=== PATIENT | male | born 1950 | race African-American/Black ===

== ENCOUNTER 2017-07-17 10:31 | Emergency (ER) | payer MEDICARE, MEDICAID ==
[~2017-07-17] VITALS: Ht 190.5 cm; Wt 107.7 kg
[~2017-07-17 10:31] MED LIST: METF500T4 PO; MORP15TA9 PO
[2017-07-17 10:45] VITALS: BP 143/71
[2017-07-17] MEDS ORDERED: ACET1TAB12 PO (10:48)
[2017-07-17] MEDS ORDERED: BP MED (10:48)
[2017-07-17 10:52] LABS: GLUCOSE,POINT OF CARE 131 MG/DL (70-110)
[2017-07-17] MEDS ORDERED: KETOROLAC TROMETHAMINE 30 MG/ML VIAL IM ONE (12:30)
[2017-07-17] MEDS ORDERED: CYCLOBENZAPRINE HCL 10 MG TABLET PO ONE (12:30)
== END 2017-07-17 13:15 | disposition home or self-care (01) ==
LOC: EMS 10:33
DX: M54.42 Lumbago with sciatica, left side (principal); M79.605 Pain in left leg; E11.9 Type 2 diabetes mellitus without complications; I10 Essential (primary) hypertension; Z88.5 Allergy status to narcotic agent
CPT/HCPCS: 82962; 96372; 99283; J1885

== ENCOUNTER 2018-03-11 09:53 | Emergency (ER) | payer MEDICARE, MEDICAID ==
[~2018-03-11] VITALS: Ht 190.5 cm; Wt 101.8 kg
[~2018-03-11 09:53] MED LIST changes: +ACET1TAB12 PO; +BP MED; -METF500T4 PO; -MORP15TA9 PO
[2018-03-11] MEDS ORDERED: ACETAMINOPHEN/CODEINE 300-30 MG TABLET PO ONE (12:45)
[2018-03-11 13:48] VITALS: BP 156/94
== END 2018-03-11 14:10 | disposition home or self-care (01) ==
LOC: EMS 09:54
DX: M54.5 Low back pain (principal); E11.9 Type 2 diabetes mellitus without complications; I10 Essential (primary) hypertension; F17.210 Nicotine dependence, cigarettes, uncomplicated; Z88.5 Allergy status to narcotic agent
CPT/HCPCS: 72100; 99406

== ENCOUNTER 2020-03-28 11:14 | Emergency (ER) | payer MEDICARE, MEDICAID ==
[~2020-03-28] VITALS: Ht 189.2 cm; Wt 98.6 kg
[2020-03-28 13:50] VITALS: BP 150/87
== END 2020-03-28 14:14 | disposition home or self-care (01) ==
LOC: EMS 11:14
DX: L84 Corns and callosities (principal); L03.116 Cellulitis of left lower limb; E11.9 Type 2 diabetes mellitus without complications; I10 Essential (primary) hypertension; F17.210 Nicotine dependence, cigarettes, uncomplicated; Z88.5 Allergy status to narcotic agent

== ENCOUNTER 2021-09-01 02:51 | Inpatient (IN) | payer MEDICARE, MEDICAID ==
[~2021-09-01] VITALS: Ht 190.5 cm; Wt 100.0 kg
[~2021-09-01 02:51] MED LIST changes: -ACET1TAB12 PO; +AMLO-258 PO; -BP MED
[2021-09-01] MEDS ORDERED: ACET-3385 PO (02:57)
[2021-09-01] MEDS ORDERED: FAMOTIDINE 40 MG in SODIUM CHLORIDE 0.9% 100 ML IV ONE (04:00)
[2021-09-01] MEDS ORDERED: DiphenhydrAMINE HCL 50 MG/ML VIAL IVP ONE ×2 (04:00→07:30)
[2021-09-01] MEDS ORDERED: MethylPREDNISolone SOD SUCC 125 MG/2 ML VIAL IVP ONE (04:00)
[2021-09-01] MEDS ORDERED: EPINEPHrine 1:1,000 [1 MG/ML] VIAL IM ONE (04:15)
[2021-09-01 04:16] LABS: BASOPHILS % (AUTO) 0.4 % (0.0-2.0); EOSINOPHILS % (AUTO) 6.6 % (1.0-6.0); HEMATOCRIT 36.6 % (41-53); HEMOGLOBIN 12.8 g/dL (13.5-17.5); LYMPHOCYTES # (AUTO) 1.7 K/uL (1.0-4.8); MEAN CORPUSCULAR HEMOGLOBIN 25.8 pg (26.0-34.0); MEAN CORPUSCULAR HGB CONC 34.9 G/dL (31.0-37.0); MEAN CORPUSCULAR VOLUME 74 fL (80-100); MONOCYTES # (AUTO) 1.1 K/uL (0.1-1.0); MONOCYTES % (AUTO) 9.7 % (2.0-9.0); NEUTROPHILS # (AUTO) 7.3 K/uL (1.8-7.7); NEUTROPHILS % (AUTO) 67.3 % (40.0-70.0); PLATELET COUNT (AUTO) 226 K/uL (150-450); RED BLOOD CELL COUNT(AUTO) 4.96 MIL/uL (4.50-5.90); RED CELL DISTRIBUTION WIDTH 16.4 % (11.5-14.5)
[2021-09-01 04:24] LABS: CALCIUM, TOTAL 8.7 mg/dL (8.8-10.5); CREATININE 1.7 mg/dL (0.60-1.30); POTASSIUM 3.7 mmol/L (3.5-5.1)
[2021-09-01] MEDS ORDERED: ACETAMINOPHEN 325 MG TABLET PO PRN (07:00)
[2021-09-01] MEDS ORDERED: DiphenhydrAMINE HCL 50 MG/ML VIAL IM SCH (07:00)
[2021-09-01] MEDS ORDERED: ONDANSETRON HCL 4 MG/2 ML VIAL IVP PRN (07:00)
[2021-09-01] MEDS ORDERED: ALBUTEROL SULFATE 2.5 MG/0.5 ML NEB SOLUTION NEB PRN (07:15)
[2021-09-01] MEDS: CETIRIZINE HCL 10 MG TABLET PO SCH (08:16)
[2021-09-01] MEDS: MethylPREDNISolone SOD SUCC 125 MG/2 ML VIAL IVP SCH (08:21)
[2021-09-01] MEDS: FAMOTIDINE 10 MG/ML 2 ML VIAL IVP SCH (08:22)
[2021-09-01] MEDS: HEPARIN SODIUM,PORCINE 5,000 UNITS/ML VIAL SQ SCH ×2 (08:23→16:44)
[2021-09-01 09:34] LABS: COVID AG,FIA SOURCE NASAL SWAB
[2021-09-01] MEDS: AmLODIPine BESYLATE 10 MG TABLET PO SCH (10:17)
[2021-09-01] MEDS: DiphenhydrAMINE HCL 50 MG/ML VIAL IVP SCH ×2 (12:09→20:27)
[2021-09-01 14:33] VITALS: BP 127/77
[2021-09-01 20:42] VITALS: BP 139/70
[2021-09-02] MEDS: DiphenhydrAMINE HCL 50 MG/ML VIAL IVP SCH ×2 (02:11→07:29)
[2021-09-02] MEDS: HEPARIN SODIUM,PORCINE 5,000 UNITS/ML VIAL SQ SCH ×2 (02:11→09:04)
[2021-09-02 03:18] LABS: CREATININE,URINE RANDOM 192.2 mg/dL (30.0-125.0)
[2021-09-02 05:04] VITALS: BP 154/85
[2021-09-02 08:04] VITALS: BP 136/73
[2021-09-02] MEDS: MethylPREDNISolone SOD SUCC 125 MG/2 ML VIAL IVP SCH (09:01)
[2021-09-02] MEDS: AmLODIPine BESYLATE 10 MG TABLET PO SCH (09:05)
[2021-09-02] MEDS: CETIRIZINE HCL 10 MG TABLET PO SCH (09:05)
[2021-09-02] MEDS: FAMOTIDINE 10 MG/ML 2 ML VIAL IVP SCH (09:25)
== END 2021-09-02 14:02 | disposition home or self-care (01) | DRG 916 ==
LOC: EMS 02:52 → 6N 13:57
PROVIDERS: ADMIT Internal Medicine; ATTEND Internal Medicine
DX: T78.3XXA Angioneurotic edema, initial encounter (principal); I12.9 Hypertensive chronic kidney disease with stage 1 through stage 4 chronic kidney disease, or unspecified chronic kidney disease; E11.22 Type 2 diabetes mellitus with diabetic chronic kidney disease; F17.210 Nicotine dependence, cigarettes, uncomplicated; R91.1 Solitary pulmonary nodule; N18.2 Chronic kidney disease, stage 2 (mild); J44.9 Chronic obstructive pulmonary disease, unspecified; Z88.8 Allergy status to other drugs, medicaments and biological substances; Z82.49 Family history of ischemic heart disease and other diseases of the circulatory system; Z85.46 Personal history of malignant neoplasm of prostate; Z85.528 Personal history of other malignant neoplasm of kidney; Z90.5 Acquired absence of kidney; Z92.3 Personal history of irradiation; Z71.6 Tobacco abuse counseling
CPT/HCPCS: 70450; 70486; 70490; 71045; 71250; 80048; 82570; 84300; 84484; 85025; 99285; J0171; J1200; J1644; J2930; J3490; J7050; 36415-L1; 36415-TC

== ENCOUNTER 2022-01-24 09:55 | Emergency (ER) | payer MEDICARE, MEDICAID ==
[~2022-01-24] VITALS: Ht 188 cm; Wt 99.1 kg
[~2022-01-24 09:55] MED LIST changes: +ACET-3385 PO
[2022-01-24] MEDS ORDERED: DEXAMETHASONE SOD PHOS 4 MG/ML 5 ML VIAL IM ONE (10:15)
[2022-01-24] MEDS ORDERED: DiphenhydrAMINE HCL 25 MG CAPSULE PO ONE (10:15)
[2022-01-24 11:10] VITALS: BP 137/76
[2022-01-24] MEDS ORDERED: DIPH25CA85 PO (12:25)
[2022-01-24] MEDS ORDERED: PRED-554 PO (12:26)
== END 2022-01-24 12:33 | disposition home or self-care (01) ==
LOC: EMS 09:55
DX: R22.0 Localized swelling, mass and lump, head (principal); T46.5X5A Adverse effect of other antihypertensive drugs, initial encounter; I10 Essential (primary) hypertension; E78.00 Pure hypercholesterolemia, unspecified; F17.210 Nicotine dependence, cigarettes, uncomplicated; Z98.890 Other specified postprocedural states; Z88.5 Allergy status to narcotic agent
CPT/HCPCS: 99283; 96372; J1100

== ENCOUNTER 2022-03-19 11:38 | Emergency (ER) | payer MEDICARE, MEDICAID ==
[~2022-03-19] VITALS: Ht 188 cm; Wt 98.6 kg
[~2022-03-19 11:38] MED LIST changes: +DIPH25CA85 PO; +PRED-554 PO
[2022-03-19] MEDS ORDERED: FAMOTIDINE 10 MG/ML 2 ML VIAL IVP ONE (12:00)
[2022-03-19] MEDS ORDERED: DiphenhydrAMINE HCL 50 MG/ML VIAL IVP ONE (12:00)
[2022-03-19] MEDS ORDERED: MethylPREDNISolone SOD SUCC 125 MG/2 ML VIAL IVP ONE (12:00)
[2022-03-19] MEDS ORDERED: EPINEPHrine 1:1,000 [1 MG/ML] VIAL IM ONE (12:15)
[2022-03-19 16:30] VITALS: BP 158/94
[2022-03-19] MEDS ORDERED: PRED-554 PO (16:40)
[2022-03-19] MEDS ORDERED: DEXAMETHASONE SOD PHOS 4 MG/ML VIAL IVP ONE (16:45)
[2022-03-19] MEDS ORDERED: DIPH25CA85 PO (16:49)
== END 2022-03-19 17:06 | disposition home or self-care (01) ==
LOC: EMS 11:39
DX: T78.3XXA Angioneurotic edema, initial encounter (principal); X58.XXXA Exposure to other specified factors, initial encounter; E78.00 Pure hypercholesterolemia, unspecified; F10.20 Alcohol dependence, uncomplicated; F17.210 Nicotine dependence, cigarettes, uncomplicated; I10 Essential (primary) hypertension; Z85.46 Personal history of malignant neoplasm of prostate; Z85.528 Personal history of other malignant neoplasm of kidney; Z88.6 Allergy status to analgesic agent
CPT/HCPCS: 99284; 96374; 96375; 96372; J1100; J1200; J0171; J3490; J2930

== ENCOUNTER 2022-06-12 08:59 | Inpatient (IN) | payer OTHER ==
[~2022-06-12] VITALS: Ht 177.8 cm; Wt 104.0 kg
[2022-06-12] MEDS ORDERED: FAMOTIDINE 10 MG/ML 2 ML VIAL IVP ONE (09:15)
[2022-06-12] MEDS ORDERED: MethylPREDNISolone SOD SUCC 125 MG/2 ML VIAL IVP ONE (09:15)
[2022-06-12] MEDS ORDERED: DiphenhydrAMINE HCL 50 MG/ML VIAL IVP ONE (09:15)
[2022-06-12] MEDS ORDERED: SODIUM CHLORIDE 0.9% 1,000 ML IV ONE (09:15)
[2022-06-12] MEDS ORDERED: EPINEPHrine 1:1,000 [1 MG/ML] VIAL IM ONE (09:30)
[2022-06-12] MEDS ORDERED: NITROGLYCERIN 2% (1 GM=INCH) OINTMENT PACKET TP ONE (10:15)
[2022-06-12 10:16] LABS: BASOPHILS % (AUTO) 0.3 % (0.0-2.0); HEMATOCRIT 40.2 % (41-53); HEMOGLOBIN 13.4 g/dL (13.5-17.5); LYMPHOCYTES % (AUTO) 22.9 % (22.0-44.0); MEAN CORPUSCULAR HEMOGLOBIN 25.3 pg (26.0-34.0); MEAN CORPUSCULAR HGB CONC 33.4 G/dL (31.0-37.0); MEAN CORPUSCULAR VOLUME 76 fL (80-100); MONOCYTES # (AUTO) 0.9 K/uL (0.1-1.0); MONOCYTES % (AUTO) 6.8 % (2.0-9.0); NEUTROPHILS # (AUTO) 8.7 K/uL (1.8-7.7); PLATELET COUNT (AUTO) 295 K/uL (150-450); RED CELL DISTRIBUTION WIDTH 16.5 % (11.5-14.5)
[2022-06-12 10:32] LABS: CALCIUM, TOTAL 9.4 mg/dL (8.8-10.5); CREATININE 1.97 mg/dL (0.60-1.30); POTASSIUM 3.8 mmol/L (3.5-5.1)
[2022-06-12 10:41] LABS: PROTHROMBIN TIME 10.6 SEC (9.4-11.6)
[2022-06-12 10:57] LABS: ALBUMIN 3.9 g/dL (3.4-5.0); BILIRUBIN,TOTAL 0.6 mg/dL (0.1-1.0); TOTAL PROTEIN, SERUM 8.3 g/dL (6.4-8.2)
[2022-06-12 11:45] LABS: APPEARANCE,URINE CLEAR (CLEAR); BILIRUBIN,URINE NEGATIVE (NEGATIVE); GLUCOSE, URINE (UA) NEGATIVE (NEGATIVE); KETONES,URINE NEGATIVE (NEGATIVE); LEUKOCYTE ESTERASE ,URINE NEGATIVE (NEGATIVE); NITRATE,URINE NEGATIVE (NEGATIVE); OCCULT BLOOD,URINE NEGATIVE (NEGATIVE); PH,URINE 5.5 (5.0-8.0); PROTEIN,URINE NEGATIVE (NEGATIVE); UROBILINOGEN,URINE <=1.0 mg/dL (<=1.0)
[2022-06-12] MEDS ORDERED: ACETAMINOPHEN 325 MG TABLET PO PRN (18:00)
[2022-06-12] MEDS ORDERED: MAGNESIUM HYDROXIDE SUSPENSION 30 ML UDCUP PO PRN (18:00)
[2022-06-12] MEDS ORDERED: ZOLPIDEM TARTRATE 5 MG TABLET PO PRN (18:00)
[2022-06-12] MEDS ORDERED: BISACODYL 10 MG RECTAL RECTAL SUPPOSITORY PR PRN (18:00)
[2022-06-12] MEDS ORDERED: ONDANSETRON HCL 4 MG/2 ML VIAL IVP PRN (18:00)
[2022-06-12 20:10] VITALS: BP 132/87
[2022-06-12] MEDS: DOCUSATE SODIUM 100 MG CAPSULE PO SCH (20:59)
[2022-06-12] MEDS ORDERED: MethylPREDNISolone SOD SUCC 40 MG/ML VIAL IVP SCH (21:00)
[2022-06-12] MEDS ORDERED: FAMOTIDINE 10 MG/ML 2 ML VIAL IVP SCH (21:00)
[2022-06-12] MEDS ORDERED: DiphenhydrAMINE HCL 50 MG/ML VIAL IVP SCH (21:00)
[2022-06-12] MEDS: HEPARIN SODIUM,PORCINE 5,000 UNITS/ML VIAL SQ SCH (23:15)
[2022-06-13 04:56] VITALS: BP 157/73
[2022-06-13 08:11] VITALS: BP 140/80
[2022-06-13] MEDS ORDERED: AmLODIPine BESYLATE 10 MG TABLET PO SCH (09:00)
[2022-06-13] MEDS ORDERED: PredniSONE 20 MG TABLET PO SCH (09:00)
[2022-06-13] MEDS ORDERED: FAMOTIDINE 20 MG TABLET PO SCH (09:00)
[2022-06-13] MEDS ORDERED: PANTOPRAZOLE SODIUM 40 MG DR TABLET PO SCH (09:00)
[2022-06-13] MEDS ORDERED: DiphenhydrAMINE HCL 25 MG CAPSULE PO SCH (09:00)
[2022-06-13] MEDS: HEPARIN SODIUM,PORCINE 5,000 UNITS/ML VIAL SQ SCH (09:03)
[2022-06-13] MEDS: DOCUSATE SODIUM 100 MG CAPSULE PO SCH (09:04)
[2022-06-13] MEDS ORDERED: DIPH25CA85 PO (11:12)
[2022-06-13] MEDS ORDERED: FAMO20 PO (11:12)
[2022-06-13] MEDS ORDERED: PRED-554 PO (11:12)
[2022-06-13 11:28] VITALS: BP 139/78
== END 2022-06-13 12:45 | disposition home or self-care (01) | DRG 916 ==
LOC: EMS 09:05 → 5N 18:47 → 5S 19:55
PROVIDERS: ADMIT Internal Medicine; ATTEND Internal Medicine
DX: T78.3XXA Angioneurotic edema, initial encounter (principal); R65.10 Systemic inflammatory response syndrome (SIRS) of non-infectious origin without acute organ dysfunction; I12.9 Hypertensive chronic kidney disease with stage 1 through stage 4 chronic kidney disease, or unspecified chronic kidney disease; E78.00 Pure hypercholesterolemia, unspecified; F17.200 Nicotine dependence, unspecified, uncomplicated; N18.30 Chronic kidney disease, stage 3 unspecified; X58.XXXA Exposure to other specified factors, initial encounter; Z85.46 Personal history of malignant neoplasm of prostate; Z85.528 Personal history of other malignant neoplasm of kidney; Z90.5 Acquired absence of kidney
CPT/HCPCS: 71045; 80053; 81003; 82550; 83880; 84484; 85025; 85610; 85730; 93005; G0378; J0171; J1200; J1644; J2920; J2930; J3490; J7030; 36415-L1; 36415-TC